=== PATIENT | female | born 1955 | race Caucasian/White ===

== ENCOUNTER → 2024-02-04 10:42 | Outpatient (REF) | payer MEDICARE, OTHER, SELFPAY | LOC: RAD 10:42 | PROVIDERS: ATTENDING PHYSICIAN Internal Medicine Rheumatology; FAMILY PHYSICIAN Family Medicine | DX: G89.29 Other chronic pain (principal); L93.1 Subacute cutaneous lupus erythematosus; M25.552 Pain in left hip; M25.561 Pain in right knee; M25.562 Pain in left knee; M32.9 Systemic lupus erythematosus, unspecified; M47.26 Other spondylosis with radiculopathy, lumbar region | CPT/HCPCS: 72110; 73502; 73560; 73565 ==

== ENCOUNTER → 2024-09-14 10:40 | Outpatient (REF) | payer MEDICARE, OTHER, SELFPAY | LOC: RAD 10:40 | PROVIDERS: ATTENDING PHYSICIAN Internal Medicine Rheumatology; FAMILY PHYSICIAN Nurse Practitioner Family | DX: M81.0 Age-related osteoporosis without current pathological fracture (principal); M47.26 Other spondylosis with radiculopathy, lumbar region; M32.9 Systemic lupus erythematosus, unspecified; M25.562 Pain in left knee; M25.561 Pain in right knee; L93.1 Subacute cutaneous lupus erythematosus; G89.29 Other chronic pain | CPT/HCPCS: 77080 ==

== ENCOUNTER 2024-12-08 06:23 | Day surgery (SDC) | payer MEDICARE, OTHER, SELFPAY | END 2024-12-08 08:37 | disposition home or self-care (01) | LOC: GI 06:23 | PROVIDERS: ATTENDING PHYSICIAN Internal Medicine Gastroenterology | DX: R15.9 Full incontinence of feces (principal); R19.4 Change in bowel habit; K57.30 Diverticulosis of large intestine without perforation or abscess without bleeding; K64.8 Other hemorrhoids; D12.2 Benign neoplasm of ascending colon | CPT/HCPCS: 45380; 88305 ==

== ENCOUNTER → 2025-03-26 10:11 | Outpatient (REF) | payer MEDICARE, OTHER, SELFPAY | LOC: RAD 10:11 | PROVIDERS: ATTENDING PHYSICIAN Internal Medicine Cardiovascular Disease; FAMILY PHYSICIAN Student in an Organized Health Care Education/Training Program | DX: I65.23 Occlusion and stenosis of bilateral carotid arteries (principal) | CPT/HCPCS: 93880 ==